=== PATIENT | female | born 1960 | race Caucasian/White ===

== ENCOUNTER 2020-10-27 05:10 | Day surgery (SDC) | payer OTHER ==
[2020-09-09 12:14] VITALS: BMI 37.8
[2020-10-27] MEDS ORDERED: KETAMINE HCL 200 MG/20 ML VIAL ONE (06:55)
[2020-10-27 08:38] VITALS: TEMP 98
[2020-10-27 09:31] VITALS: BP 133/86; PULSE 64
== END 2020-10-27 09:30 | disposition home or self-care (01) ==
LOC: JASU-ENDO 05:10
PROVIDERS: ATTEND Internal Medicine Gastroenterology
PROC: 0DB68ZX Excision of Stomach, Via Natural or Artificial Opening Endoscopic, Diagnostic (ICD-10-PCS; 2020-10-27)
PROC: 0DJD8ZZ Inspection of Lower Intestinal Tract, Via Natural or Artificial Opening Endoscopic (ICD-10-PCS; 2020-10-27)
PROC: 0DB98ZX Excision of Duodenum, Via Natural or Artificial Opening Endoscopic, Diagnostic (ICD-10-PCS; principal; 2020-10-27 08:00)
DX: Z12.11 Encounter for screening for malignant neoplasm of colon (principal); K64.8 Other hemorrhoids; K57.30 Diverticulosis of large intestine without perforation or abscess without bleeding; K21.9 Gastro-esophageal reflux disease without esophagitis; K44.9 Diaphragmatic hernia without obstruction or gangrene; K29.00 Acute gastritis without bleeding; R10.9 Unspecified abdominal pain; R19.5 Other fecal abnormalities
CPT/HCPCS: 43239; G0121

== ENCOUNTER 2023-11-14 04:23 | Day surgery (SDC) | payer OTHER ==
[2023-11-12 11:10] VITALS: BMI 32.9
[2023-11-14 08:19] LABS: EOS % 2.5 % (0-4.5); HEMATOCRIT 45.2 % (32.4-45.2); HEMOGLOBIN 15.4 GM/dL (10.7-15.3); LYMPH % 45.6 % (8-40); MCH 31.8 pg (25.7-33.7); MCHC 34.1 g/dl (32.0-36.0); MEAN CELL VOLUME 93.2 fl (80-96); MEAN PLT VOLUME 9.2 fl (7.5-11.1); MONO % 11.8 % (3.8-10.2); NEUT % 39.1 % (42.8-82.8); PLATELET COUNT 215 10^3/uL (134-434); RBC 4.85 M/mm3 (3.60-5.2); RDW 12.6 % (11.6-15.6); WHITE BLOOD COUNT 5.4 K/mm3 (4.0-10.0)
[2023-11-14 08:28] VITALS: BP 121/87; PULSE 64; RESP 20; TEMP 96.9
[2023-11-14 08:31] LABS: INR 1.04 (0.83-1.09); PROTHROMBIN TIME (PATIENT) 11.7 SEC (9.7-13.0)
[2023-11-14 08:42] LABS: POTASSIUM 4.5 mmol/L (3.5-5.1)
[2023-11-14 08:43] LABS: BLOOD UREA NITROGEN 14.8 mg/dL (7-18); CALCIUM 9.7 mg/dL (8.5-10.1)
[2023-11-14 08:47] LABS: CREATININE 0.8 mg/dL (0.55-1.3)
== END 2023-11-14 13:45 | disposition home or self-care (01) ==
LOC: JASU-ENDO 04:23 → JRADIR 04:23
PROVIDERS: ATTEND Internal Medicine Gastroenterology
DX: Z53.8 Procedure and treatment not carried out for other reasons (principal)
CPT/HCPCS: 36415; 80048; 85025; 85610

== ENCOUNTER 2023-11-15 04:45 | Day surgery (SDC) | payer OTHER ==
[2023-11-14 15:04] VITALS: BMI 32.9
[2023-11-15] MEDS ORDERED: MIDAZOLAM HCL 2 MG/2 ML SINGLE DOSE VIAL ONE (12:32)
[2023-11-15] MEDS ORDERED: FENTANYL CITRATE/PF 50 MCG/ML VIAL ONE (12:33)
[2023-11-15] MEDS: MIDAZOLAM HCL 2 MG/2 ML SINGLE DOSE VIAL IVPUSH ONE (12:55)
[2023-11-15] MEDS: FENTANYL CITRATE/PF 50 MCG/ML VIAL IVPUSH ONE (12:55)
[2023-11-15 16:10] VITALS: PULSE 62
[2023-11-15 16:36] VITALS: BP 144/90; RESP 18; TEMP 98.6
== END 2023-11-15 17:24 | disposition home or self-care (01) ==
LOC: JRADIR 04:45
PROVIDERS: ATTEND Internal Medicine Gastroenterology
PROC: 0FB03ZX Excision of Liver, Percutaneous Approach, Diagnostic (ICD-10-PCS; principal; 2023-11-15)
DX: K76.0 Fatty (change of) liver, not elsewhere classified (principal)
CPT/HCPCS: 47000; 76705-TC; 76942-TC; 82962; 87899; 88307-TC; 88313-TC